=== PATIENT | female | born 1955 | race Two or more races ===

== ENCOUNTER 2024-10-07 14:58 | Emergency (ER) | payer OTHER ==
[~2024-10-07] VITALS: Ht 149.9 cm; Wt 53.5 kg
[2024-10-07] MEDS ORDERED: METFORMIN HCL500 M3 PO (15:42)
[2024-10-07] MEDS ORDERED: GUAIFENESIN/DEXTROMETHORPHAN 100MG/10ML BLIST.PACK PO ONE ×2 (16:45→16:53)
[2024-10-07 17:32] LABS: BASO % 0.2 % (0.1-1.2); EOS # 0.11 (0.04-0.54); EOS % 2.6 % (0.7-7.0); LYMPH # 1.64 (1.18-3.74); LYMPH % 38.8 % (19.3-53.1); MEAN PLATELET VOLUME 9.90 fl (9.4-12.4); MONO # 0.53 (0.24-0.82); NEUT # 1.93 (1.56-6.13); NEUT % 45.7 % (34.0-71.1); RED CELL DISTRIBUTION WIDTH 13.5 % (11.6-14.4)
[2024-10-07 17:33] LABS: MONO % 12.5 % (4.7-12.5)
[2024-10-07 17:49] LABS: COVID-19 AG NEGATIVE (NEGATIVE)
[2024-10-07 18:00] LABS: BUN CREA RATIO 12.0 (7.0-25.0); CREATININE SERUM 0.77 mg/dL (0.55-1.02); GFR 74.11; GLUCOSE FASTING 153.0 mg/dL (65-100); OSMOLALITY SERUM 281.0 MOSM/KG (275-295)
[2024-10-07] MEDS ORDERED: TUSSIN DM LIQU118 ML PO (19:13)
[2024-10-07] MEDS ORDERED: ZITHROMAX500 MG PO (19:13)
== END 2024-10-07 23:11 | disposition home or self-care (01) ==
LOC: ER 15:44
PROVIDERS: Emergency Medicine
DX: J06.9 Acute upper respiratory infection, unspecified (principal); R05.9 Cough, unspecified; Z20.822 Contact with and (suspected) exposure to COVID-19; E11.9 Type 2 diabetes mellitus without complications; Z79.84 Long term (current) use of oral hypoglycemic drugs